=== PATIENT | female | born 2005 | race Caucasian/White ===

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

== ENCOUNTER 2024-01-24 15:48 | Emergency (ER) | payer OTHER ==
[~2024-01-24] VITALS: Ht 152.4 cm; Wt 41.0 kg
[~2024-01-24 15:48] MED LIST changes: +ONDA-188 PO
[2024-01-24 15:51] VITALS: BP 121/83; PULSE 76; RESP 18; TEMP 97.8; O2SAT 99
[2024-01-24] MEDS: ALUMINUM HYD/MAG/SIMETHICONE 30 ML UDC PO ONE (16:50)
[2024-01-24] MEDS: FAMOTIDINE 20 MG TAB PO ONE (16:51)
[2024-01-24] MEDS: KETOROLAC 30 MG/ML VIAL IM ONE (16:51)
== END 2024-01-24 17:32 | disposition home or self-care (01) ==
LOC: MED 15:48
DX: R07.89 Other chest pain (principal); R11.0 Nausea; R10.13 Epigastric pain; F17.200 Nicotine dependence, unspecified, uncomplicated; Z79.899 Other long term (current) drug therapy
CPT/HCPCS: 71045; 81025; 93005; 96372; 99283; J1885